=== PATIENT | male | born 1945 | race Caucasian/White ===

== ENCOUNTER 2016-08-05 09:25 | Inpatient (IN) | payer BC, MEDICARE ==
[~2016-08-05] VITALS: Ht 180.3 cm; Wt 112.3 kg
--- NOTE | ~2016-08-05 | WND ---
ADMIT: 08/05/2016 RM/LOC: 425 [facility] MR#: [id number] [address] [address] LISANDRO SMITH [address] [place] [address] Wound Care Clinic SEX: M AGE: 71 : 1945 DATE OF VISIT: 08/08/2016 TIME OF VISIT: 30 minutes. REASON FOR VISIT: Weeping left lower extremity. HISTORY OF PRESENT ILLNESS: Lisandro was admitted to the hospital on August 05, 2016, for an acute on chronic obstructive pulmonary disease exacerbation with influenza A. He also was noted at that time to have weeping of bilateral lower extremities. His states that he has a long history of this and at home she is able to kind of control using it Naveen wraps. On August 05, 2016, I applied bilateral Unna boots. He reported that he has along well with the Unna boots. He states today that he is feeling better, and he is getting ready to go home. He has just had a shower, and his Unna boots have been removed. OBJECTIVE: GENERAL: Assessment reveals an alert and oriented 71-year-old male, in no acute distress. EXTREMITIES: Assessment of bilateral lower extremities shows 2+ pitting edema. He has hemosiderin staining to the anterior surfaces of bilateral lower extremities. The stasis dermatitis has resolved with the use of the [place]. He has 1+ dorsalis pedis pulse bilaterally. Circumferential measurements of the right lower extremity are 26 cm at the foot, 29 at the ankle, and 43 at the calf. In his left lower extremity, circumferential measurements are 26 cm at the foot, 29 cm at the ankle, and 37 cm at the calf. ASSESSMENT: History of venous insufficiency with venous insufficiency ulcers. PLAN: Due to the swelling that is still there, I am going to rewrap him in Unna boots bilaterally. Starting at the proximal base of bilateral toes to the popliteal fossa, I used the Unna Boot Primer and Coban. The patient tolerated the procedure well. He is going to follow up with us in Outpatient [facility] Clinic on August 15, 2016. I would like to thank Dr. Gray for allowing me to participate in his care. Trudy Gregg APRN/ sara JOB #: [id number] CC: Aditya Gray MD, Attending Physician Aditya Gray MD, Family Physician
--- NOTE | ~2016-08-05 | WND ---
ADMIT: 08/05/2016 RM/LOC: 425 [facility] MR#: [id number] [address] [address] CHAIM SMITH [address] [place] [address] Wound Care Clinic SEX: M AGE: 71 : 1945 DATE OF VISIT: 08/05/2016 TIME OF VISIT: 15 minutes. REASON FOR VISIT: Weeping left lower extremity. HISTORY OF PRESENT ILLNESS: Chaim was seen in Short-Stay Surgery where he was receiving IV antibiotics for a possible community-acquired pneumonia. Wound Care was consulted regarding weeping of bilateral lower extremities. His reports that he has long standing history of this. She states that he gets admitted to the hospital for diuresis and he is good for about a week or so and then he starts to have the weeping lower extremities again. PAST MEDICAL HISTORY: He was hospitalized twice in 2011 for bilateral knee replacements. Hospitalized in 2009 for congestive heart failure. Hospitalized in 2002 for myocardial infarction, ventricular tachycardia with arrest. Chronic medical conditions include chronic atrial fibrillation, chronic obstructive pulmonary disease, systolic congestive heart failure although the last ejection fraction on echocardiogram was 50%, hyperlipidemia, essential hypertension, impaired fasting glucose, osteoarthritis, chronic lower extremity edema, chronic obstructive sleep apnea, pulmonary hypertension, rheumatoid arthritis, bilateral varicose vein history. PAST SURGICAL HISTORY: Include LAD stent, pacemaker ICD placement, cardiac catheterizations, colonoscopy, tonsillectomy, bilateral knee replacements. FAMILY HISTORY: Positive for diabetes, osteoarthritis, myocardial infarction, and asthma in various first-degree relative. SOCIAL HISTORY: He is and resides with his at home. He is a former smoker. He uses alcohol occasionally. ALLERGIES: Lipitor causes muscle aches. CURRENT MEDICATIONS: Unavailable at time of dictation. However, I do have a list of medications from September of 2015 from old chart review that shows: 1. Aldactone. 2. Aspirin. 3. Coumadin. 4. Crestor. 5. Vitamin C. 6. Multivitamin. 7. Fish oil. 8. Glucosamine. 9. Lasix. 10.Lisinopril. 11.Methotrexate. 12.Niaspan. 13.Azulfidine. ADMIT: 08/05/2016 RM/LOC: 425 [facility] MR#: [id number] [address] [address] CHAIM SMITH [address] [place] [address] Wound Care Clinic SEX: M AGE: 71 : 1945 14.Symbicort. 15.Toprol. 16.Relafen. 17.Oxygen 2 L continuous. REVIEW OF SYSTEMS: He does report having fever and chills over the past couple of days. He is increasingly short of breath. He does have a dry cough. He denies any nausea, vomiting, or abdominal pain. PHYSICAL EXAMINATION: Reveals an alert and oriented 71-year-old male, in no acute distress. He is examined in Short-Stay Surgery sitting in the recliner with his feet elevated. Assessment of his bilateral lower extremities shows hemosiderin staining with stasis dermatitis to bilateral lower extremities. He has 1+ dorsalis pedis pulses bilaterally. He has 3+ pitting edema on the right and 2+ pitting edema on the left. Circumferential measurements of the right lower extremity are 27 cm at the foot, 29 cm at the calf, 42 cm at the ankle. On the left, he has 27 cm at the foot, 28 cm at the ankle, and 37 cm at the calf. No open weeping areas are noted. ASSESSMENT: History of venous insufficiency with venous insufficiency ulcers. PLAN: Due to the large amount of edema and the previous history of weeping bilateral lower extremities, we are going to apply Unna boots to bilateral lower extremities. We used a Coban primer and started from the proximal base of the toes and wrapped in a spiral fashion to popliteal fossa bilaterally. Then, using Coban, we wrapped from the proximal base of the toes to the popliteal fossa in a spiral fashion. The patient tolerated the procedure well. We did write an order when he went to the hospital that we will change these on Mondays and . The patient was amenable to plan of care. I would like to thank Dr. Gray for allowing us to participate in his care. Trudy Gregg APRN/ sara JOB #: [id number] CC: Aditya Gray, Attending Physician Aditya Gray, Family Physician
[~2016-08-05 09:25] MED LIST: ALDACTONE DPS25 MG PO; AMBIEN DPS5 MG PO; ASA CHILDREN'S81 MG PO; AZULFIDINE DPS500 MG PO; COUMADIN5 MG PO; COUMADIN7.5 MG PO; CRESTOR40 MG PO; DEBROX OTIC15 ML AU; DUONEB DPS3 ML IH; LASIX DPS80 MG PO; MAALOX DPS30 ML PO; METHOTREXATE2.5 MG PO; MYCOSTATIN PWD15 GM TP; NITROSTAT0.4 MG SL; PLAQUENIL DPS200 MG PO; RELAFEN DPS750 MG PO; SLO NIACIN DPS500 MG PO; SPIRIVA18 MCG IH; SURFAK DPS240 MG PO; SYMBICORT80 MCG/6.9 IH; THERAPEUTIC MUL1 TAB PO; TOPROL XL100 MG PO; TYLENOL DPS325 MG PO; VITAMIN C1000 MG PO; ZESTRIL DPS2.5 MG PO; [UNRECOGNIZED DRUG - OTHER] PO
--- NOTE | 2016-08-08 13:33 | HP ---
ADMIT: 08/05/2016 RM/LOC: 425 [facility] MR#: [id number] [address] [address] CHAIM SMITH [address] [place] [address] History and Physical SEX: M AGE: 71 : 1945 DATE OF SERVICE: CHIEF COMPLAINT: Two-day history of increasing congestion and cough and weakness with fever. HISTORY OF PRESENT ILLNESS: Chaim is a very nice 71-year-old with multiple medical issues as outlined below. He states that 2 days ago (Friday), he began to have some increasing cough and congestion and then yesterday, became increasingly weak, had worse cough and developed low-grade fever. His brought him into the office this morning with these complaints and because of this issue and his physical status outlined below, he is admitted for further evaluation and treatment. PAST MEDICAL HISTORY: His problem list includes known atrial fibrillation/PAF and he is status post cardiac defibrillator for ischemic cardiomyopathy (October 2009, AICD placement), he has known chronic obstructive pulmonary disease, chronic both systolic and diastolic congestive heart failure, [place] Heart Association class 3-4, hyperlipidemia, systemic hypertension, impaired fasting glucose, obstructive sleep apnea, diffuse osteoarthritis, rheumatoid arthritis (seropositive-sees Dr. Delarosa), pulmonary hypertension, status post acute myocardial infarction/STEMI on 06/10/2002 with stenting, iron-deficiency anemia, and lower extremity chronic venous stasis with varicose veins and ulceration. CURRENT MEDICATIONS: Include: 1. Aldactone 25 mg at bedtime. 2. Aspirin 81 mg daily. 3. Coumadin 5 mg daily. 4. Crestor 40 mg at bedtime. 5. Glucosamine/chondroitin one daily. 6. Multivitamin 1 daily. 7. Dulera 100/5, 2 inhalations b.i.d. 8. Folic acid 1 mg b.i.d. 9. Vitamin C 500 mg 2 daily. 10.DuoNeb q.i.d. p.r.n. 11.Lisinopril 2.5 mg at bedtime. 12.Methotrexate 2.5 mg 6 tabs on Friday. 13.Metoprolol ER 25 mg daily. 14.Nabumetone 750 mg b.i.d. 15.Nitrostat 0.4 mg sublingual p.r.n. 16.Plaquenil 200 mg b.i.d. 17.Sotalol 160 mg b.i.d. 18.Spiriva hand inhaler 18 mcg daily. 19.Sulfasalazine 500 mg b.i.d. 20.Torsemide 10 mg daily. 21.Vitamin D 1000 International Units daily. 22.Zolpidem 5 mg at bedtime. ALLERGIES: THERE ARE NO ALLERGIES REPORTED TO LATEX AND ATORVASTATIN (MUSCLE ADMIT: 08/05/2016 RM/LOC: 425 [facility] MR#: [id number] [address] [address] CHAIM SMITH [address] [place] [address] History and Physical SEX: M AGE: 71 : 1945 ACHES). SOCIAL HISTORY: Reveals that he quit smoking a number of years ago, former [id number]-jyw-approximate [id number] history. He drinks alcohol rarely. Because of his multiple medical issues, he cannot exercise as well. He lives at home with his and is on O2 at bedtime routinely. 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 REVIEW OF SYSTEMS: Otherwise, negative x10 points except as noted above. PHYSICAL EXAMINATION: GENERAL: This morning, he was alert but looks in moderate distress. He is pale. VITAL SIGNS: He has a temp of 101.4 here in the office, blood pressure 112/62, pulse of 115 and irregular, O2 saturation of 93% on 3 L. HEENT: Essentially negative. NECK: Reasonably supple. I detect no bruits. LUNGS: Sounds are distant and reduced but essentially his lungs sound clear. CARDIAC: Shows very distant heart sounds and irregularly irregular cardiac rhythm around 110-115. ABDOMEN: Relatively soft without masses, tenderness, or organomegaly. GENITAL/RECTAL: Not done. Lower extremities show 1-2+ pitting edema to his knees with "weeping" edema of the left lower extremity. NEUROLOGIC: Essentially normal with his inability to test. IMPRESSION: 1. Exacerbation of chronic obstructive pulmonary disease-suspect underlying pneumonia. 2. Atrial fibrillation with rapid ventricular response. 3. Chronic congestive heart failure-apparently both systolic and diastolic. 4. Systemic hypertension. 5. Impaired fasting glucose. 6. Hyperlipidemia. 7. Chronic Coumadin anticoagulation. 8. Obstructive sleep apnea. 9. Diffuse osteoarthritis. 10.Seropositive rheumatoid arthritis. 11.History of iron deficiency anemia. ADMIT: 08/05/2016 RM/LOC: 425 [facility] MR#: [id number] [address] [place] [id number] CHAIM SMITH [address] [place] [address] History and Physical SEX: M AGE: 71 : 1945 12.Known coronary artery disease, status post ST-segment elevation myocardial infarction in 2002 with stenting. 13.Status post AICD/pacemaker placement in October 2009. 14.Pulmonary hypertension. 15.Chronic venous stasis of lower extremities with history of ulcerations. PLAN: He has been admitted. We will seek Pulmonary consult. We will place him on a community-acquired pneumonia pathway and use Zosyn/Levaquin/Solu- Medrol. We will increase his bronchopulmonary toilet. We will get a wound nurse consult about his left lower extremity. We will do the basic laboratory studies. Further treatment will depend on his response to our initial therapies. Aditya Gray MD/ sara JOB #: [id number] CC: Aditya Gray, Attending Physician Aditya Gray, Family Physician
--- NOTE | 2016-08-09 17:30 | CCR ---
ADMIT: 08/05/2016 RM/LOC: 425 [facility] MR#: [id number] [address] [address] CHAIM SMITH [address] [place] [address] CCR/CVR/GILMAR SEX: M AGE: 71 : 1945 PROCEDURE DATE: 08/09/2016 PROCEDURE: Elective cardioversion for atrial fibrillation. ANESTHESIA: IV propofol was administered and monitored by the Anesthesia Department. INDICATION: Chaim is a 71-year-old, who was admitted with respiratory decline and shortness of breath. Eventually, he was found to have influenza with underlying COPD. He has chronic heart failure and a history of paroxysmal atrial fibrillation and has had a previous dual-chamber ICD implanted. He was in atrial fibrillation when he was hospitalized. It has been tachycardic and difficult to get rate control. He has been on chronic anticoagulation and antiarrhythmic therapy for some time. He was referred for cardioversion. DESCRIPTION: Utilizing his internal defibrillator, we proceeded with cardioversion. After achieving adequate anesthesia, and I discussed the risks and benefits with him, we delivered 31 joule defibrillation, which promptly restored sinus rhythm. We left his device in the DDI mode at a rate of 70. RECOMMENDATIONS: Continue his sotalol and anticoagulation. Tyrell Gray MD/ sara JOB #: [id number] CC: Aditya Gray, Attending Physician Aditya Gray, Family Physician
--- NOTE | 2016-08-12 10:29 | CO ---
ADMIT: 08/05/2016 RM/LOC: 425 [facility] MR#: [id number] 2620 [facility] [address] [place] [id number] CHAIM SMITH [address] [place] [address] Consultation SEX: M AGE: 71 : 1945 DATE OF CONSULTATION: 08/05/2016 ATTENDING PHYSICIAN: Aditya Gray CONSULTING PHYSICIAN: Alan Forman MD Mr. Smith is 71. He was accompanied here by his . He is 71. He has a diagnosis of COPD, coronary artery disease with cardiomyopathy, congestive heart failure, obstructive sleep apnea and a diagnosis of WPW. He does have defibrillator. He has given up smoking in 2002 when he had 3 heart stents. He follows with the [facility]. He presented to the ER with low-grade fever and hypotension and tachycardia. Temperature was 101.4, blood pressure was 112/62, he told me it was 90s when he came in and his heart rate was 123. Oxygen saturation is 93%. He is on oxygen at home 09/12. He has been coughing and he was also having some whitish sputum production, no blood. Lot of chest pain in the mid chest with cough. He did eat alright on Friday and also had eaten good breakfast on Friday morning, but not since. From the ER, he has been started on Zosyn, levofloxacin and Solu-Medrol. DuoNeb treatment has been given. He is on oxygen. IV fluids started. He had blood cultures taken. His laboratory investigation shows a pH of 7.45, PCO2 of 36, PO2 of 116.1, with bicarbonate 24.5 on 3 L. His creatinine is 2.0. Potassium 4.3, glucose 232. Liver functions elevated, alkaline phosphatase 158. AST 55, LDH 258, INR 1.9. His white count was 5.6, hemoglobin 13.5, platelets low at 78. Denies any chest pain except for when he tries to take cough hard. He has edema in the lower extremities. He has short, thick neck. He has been using nebulized treatment at home. Diminished breath sounds on both sides, minimal rhonchi and no distinct heart murmur. Abdomen, protuberant without organomegaly. Chest x-ray seen and compared with 10/08/2015 and 10/06/2015. Increased marking pacer, no distinct pneumonia identified. I am going to check the procalcitonin, proBNP, lactic acid, and levofloxacin should be at 750 q.48 hours. Zosyn in the same dose, Solu-Medrol 80 mg every 8 hours. I am going to give him 1 L of fluid bolus now and then IV fluids at 125 another liter and see how he does. He looks alert and appropriate. Does not appear to be in any distress, overall prognosis should be guarded. Discussed with his and nurse. Alan Forman MD/ sara JOB #: [id number] CC: Aditya Gray, Attending Physician Aditya Gray, Family Physician
[2016-08-13] MEDS ORDERED: GLUCAGON HCL1 MG IM (06:47)
[2016-08-13] MEDS ORDERED: DULERA 100/58.8 GM IH (06:51)
[2016-08-13] MEDS ORDERED: FOLIC ACID1 MG PO (06:52)
[2016-08-13] MEDS ORDERED: CARDIZEM60 MG PO (06:53)
[2016-08-13] MEDS ORDERED: KLOR-CON M2020 ME1 PO (06:53)
[2016-08-13] MEDS ORDERED: GLUCOSAMINE &1 EAC1 PO (06:53)
[2016-08-13] MEDS ORDERED: PEPCID DPS20 MG PO (06:54)
[2016-08-13] MEDS ORDERED: TAMIFLU30 MG PO (06:54)
[2016-08-13] MEDS ORDERED: LEVAQUIN DPS250 MG PO (06:54)
[2016-08-13] MEDS ORDERED: GLUTOSE 1537.5 GM PO (06:55)
--- NOTE | 2016-08-16 15:09 | CO ---
ADMIT: 08/05/2016 RM/LOC: 425 [facility] MR#: [id number] [address] CHAIM SMITH [address] [place] [address] Consultation SEX: M AGE: 71 : 1945 DATE OF CONSULTATION: 08/06/2016 ATTENDING PHYSICIAN: Aditya Gray CONSULTING PHYSICIAN: Mike Mike MD REASON FOR CONSULTATION: Paroxysmal atrial fibrillation with CHF and hypotension. Violeta Lino RN, scribing for Dr. Mike Mike. HISTORY OF PRESENT ILLNESS: Chaim is a pleasant 71-year-old gentleman I have been asked to see in Cardiology consultation by Dr. Francisco for hypotension recently with CHF and paroxysmal atrial fibrillation history. Chaim follows regularly at [facility] with Dr. Tobi Lorenzo. He has seen him on 05/29/2016 at last office visit. He has history of Fakdg-Njjnbpzrs-Cnpnj along with history of VT arrest in 2002 during an VT resulting in stent to his LAD and has a dual-chamber ICD placement currently. Last echocardiogram showed ejection fraction of 55% in little less than a year ago with a stress test around that time showing fixed defect. He has history of obstructive sleep apnea and is on CPAP at night. He also has history of paroxysmal atrial fibrillation, hypertension, and hyperlipidemia. He has former tobacco use, quitting in 2002. Chaim also has history of COPD and chronic kidney disease with baseline creatinine anywhere from 1.7 to 2. Chaim presented to [facility], direct admit from primary care yesterday, for complaints of increased shortness of breath for about 2 days along with fever and cough. He stated this progressively had gotten worse, he went and saw Dr. Aditya Gray, who is his primary care physician and was found to be in atrial fibrillation at that time along with suspected pneumonia and so, he was admitted. He is being followed by Pulmonology for pneumonia and possible sepsis at this time. His heart rate has been elevated in the 120s. He denies any palpitations but does state that since admission, he feels much better as far as his shortness of breath and weakness are concerned. He did have some hypotension yesterday with blood pressures in the 80s and so, some of his blood pressure medications were held. He continues to have heart rates around 120. He is on Coumadin for anticoagulation. Chaim denies any chest pain, pressure, or tightness. He does have some significant peripheral edema and Wound Care is evaluating him and has placed Unna boots on his legs. Chest x- ray has demonstrated increased pneumonia. PAST MEDICAL HISTORY: 1. Paroxysmal atrial fibrillation. 2. Coronary artery disease, status post myocardial infarction in 2002 with a VT arrest, status post ICD dual-chamber placement. 3. Hypertension. 4. Hyperlipidemia. 5. Former tobacco use. 6. Acogz-Btdepxeiz-Mglcz syndrome. ADMIT: 08/05/2016 RM/LOC: 425 [facility] MR#: [id number] [id number] [address] CHAIM SMITH [address] [place] [address] Consultation SEX: M AGE: 71 : 1945 7. History of respiratory failure. 8. History of COPD. 9. Osteoarthritis. 10.Chronic venous stasis. 11.Emphysema. 12.Obesity. 13.Osteoarthritis. 14.Pulmonary hypertension. 15.Rheumatoid arthritis. 16.Obstructive sleep apnea, on CPAP. 17.Ulcerative colitis. 18.Varicose veins. PAST SURGICAL HISTORY: 1. Right total knee replacement. 2. Left total knee replacement. 3. Tonsillectomy. 4. Colonoscopy. 5. Cardiac procedures outlined above. ALLERGIES: LIPITOR CAUSED MUSCULOSKELETAL PAIN, AND HE HAS A LATEX ALLERGY WITH RASH. MEDICATIONS: Current medications include: 1. Aldactone 25 p.o. at bedtime, which was held last night. 2. Aspirin 81 daily. 3. Azulfidine 1000 mg p.o. b.i.d. 4. Betapace 160 b.i.d. 5. Coumadin 5 daily. 6. Crestor 40 daily. 7. Demadex 10 p.o. b.i.d. 8. Folvite 2 mg p.o. daily. 9. Glucosamine p.o. t.i.d. 10.Methotrexate 15 p.o. at bedtime. 11.Plaquenil 200 b.i.d. 12.Protonix 40 daily. 13.Relafen 750 p.o. b.i.d. 14.Multivitamin daily. 15.Toprol-XL 75 p.o. daily. 16.Vitamin C 1000 daily. 17.Zestril 2.5 daily. 18.DuoNeb inhalation q.4 hours. 19.Spiriva 18 mcg inhalation daily. 20.NovoLog sliding scale before meals and at bedtime. 21.Levaquin 750 mg IV q.48 hours. 22.Solu-Medrol 40 mg IV q.8 hours. 23.Zosyn 3.375 g IV q.8 hours. ADMIT: 08/05/2016 RM/LOC: 425 [facility] MR#: [id number] [address] [address] CHAIM SMITH [address] [place] [address] Consultation SEX: M AGE: 71 : 1945 FAMILY HISTORY: Positive family history of coronary disease in father. Positive family history of cancer in grandmother. Positive family history of diabetes in brother. SOCIAL HISTORY: Chaim is . He lives at home with his , Stephany. He is retired. He has history of alcohol use one drink a week and drinks coffee on a daily basis. Low-fat, low-cholesterol, low-salt diet. He quit smoking in 2002 after a 40 pack-year history. REVIEW OF SYSTEMS: GENERAL: Denies chills, sweats, or rash. Reports increased fatigue over the last 2-3 days and a history of fever over the last 2-3 days. He is unsure about weight gain. EYES: Denies double vision, blurred vision, cataracts, glaucoma, or vision changes. ENT: Denies problems with nose, mouth or throat. Denies any sinus congestion, sore throat, or hearing loss. PULMONARY: Denies snoring loudly, wakefulness at night, or fatigue upon awakening. History of COPD with emphysema. History of obstructive sleep apnea, on CPAP. He was admitted with increased shortness of breath, which is improving. He is currently being treated for pneumonia. GASTROINTESTINAL: History of gastroesophageal reflux disease. Denies any current issues with swallowing or hiatal hernia. Denies any blood in stools, black or tarry stools, or gallbladder issues. GENITOURINARY: Denies dysuria, hematuria, nocturia, urinary tract infection, BPH, or kidney stones. He does have chronic kidney disease with a creatinine around 1.9 to 2. MUSCULOSKELETAL: History of osteoarthritis and gout. Currently, he is denying any discomfort in his extremities. ENDOCRINE: History of diabetes. Denies thyroid issues. HEMATOLOGIC: Denies history of anemia, easy bruising, or cancer. NEUROLOGIC: Denies chronic headaches, dizziness, syncope, stroke, seizures or numbness or tingling. PSYCHIATRIC: Denies history of mental illness or feelings of depression. PHYSICAL EXAMINATION: VITAL SIGNS: Blood pressure 122/55, heart rate 126, respirations 20, temperature 96.9, oxygenation 98% on O2. SKIN: [place], warm and dry. EYES: Sclerae clear. No xanthelasmas. ENT: Nasal cannula O2. JVP difficult to visualize. Oral mucosa is pink and moist. No lymphadenopathy or bruits. CHEST: Respirations are even and unlabored. Lungs, coarse breath sounds with expiratory wheezes throughout. HEART: Tachycardic. Irregularly irregular. ABDOMEN: Obese, nontender, nondistended. MUSCULOSKELETAL: Gait is normal. EXTREMITIES: Peripheral pulses palpable. No clubbing or cyanosis. With 2 to 3+ pitting edema. Unna boots in place. PSYCHIATRIC: Alert and oriented. Mood and affect are appropriate. ADMIT: 08/05/2016 RM/LOC: 425 [facility] MR#: [id number] [facility] [address] [place] [id number] CHAIM SMITH [address] [place] [address] Consultation SEX: M AGE: 71 : 1945 DIAGNOSTIC DATA: Chest x-ray on 08/06 shows bilateral interstitial opacities which have increased since last x-ray 24 hours ago. Sodium 137, potassium 4.1, BUN 37, creatinine 1.9, glucose 290. ProBNP 2310. AST 98, ALT 95. CRP 3.02. INR 1.92. White blood cell count 7.6, hemoglobin 10.9, hematocrit 34.0, platelets 132. Lactic acid 1.6. ASSESSMENT AND PLAN: 1. Acute chronic obstructive pulmonary disease exacerbation. 2. Atrial fibrillation with rapid ventricular response. 3. Acute on chronic systolic and diastolic heart failure. 4. Hypotension. 5. Coronary disease, status post myocardial infarction remotely. 6. Status post implantable cardioverter defibrillator. I suspect his hypotension and atrial fibrillation was exacerbated by infection and respiratory failure. I will give a dose of digoxin for atrial fibrillation rate control and he is already on sotalol for rhythm control. He has significant edema and so, I will also give him a dose of IV Lasix 80 mg x1 now and hold his Demadex at this time. He will have strict I's and O's and daily weights, and I will recheck EKG in a.m. along with I's and O's and rhythm on telemetry. Thank you for the consultation. "I have read and agree with the documentation that has been completed regarding this visit. By signing this record, I attest that the documentation was completed in my physical presence and is an accurate record of the encounter." Violeta Lino RN / Mike Mike MD / sara JOB #: [id number] CC: Aditya Gray, Attending Physician Aditya Gray, Family Physician
--- NOTE | 2016-08-20 08:16 | DS ---
ADMIT: 08/05/2016 RM/LOC: 425 [facility] MR#: [id number] [id number] [address] CHAIM SMITH [address] [place] [address] General Discharge Summary SEX: M AGE: 71 : 1945 ADMISSION DATE: 08/05/2016 DISCHARGE DATE: 08/12/2016 FINAL DIAGNOSES: 1. Xllqf-ce-vfedgtm obstructive pulmonary disease exacerbation with influenza A. 2. Atrial fibrillation with rapid ventricular response. 3. Leyzr-tr-ihyhnms systolic and diastolic heart failure. 4. Systemic hypotension with #1. 5. Coronary artery disease, status post myocardial infarction years ago. 6. Status post implantable cardioverter-defibrillator. 7. Hyperlipidemia. 8. Impaired fasting glucose. 9. Obstructive sleep apnea. 10.Diffuse osteoarthritis. 11.Seropositive rheumatoid arthritis. 12.Pulmonary hypertension. 13.Status post acute myocardial infarction/ST-segment elevation myocardial infarction in 2002 with stenting. 14.Iron-deficiency anemia. 15.Chronic lower extremity venous stasis with varicose veins and history of ulceration-none current. 16.Chronic renal insufficiency (GFR 35-40). BRIEF HISTORY: This very nice 71-year-old gentleman reported that 2 days prior to this admission, he began having increasing cough and congestion and then yesterday, the day prior to admission, became increasingly weak, had worse cough and developed low-grade fever. He was brought by his to the office the morning of admission, where he was found to be in moderate distress, was pale, had a temp of 101.4 in the office blood pressure 112/62 and irregular pulse of 115, O2 sats at 93% on 3 L. His heart sounds were distant but irregularly irregular around 110-115. Lungs sounds are also distant but he had no obvious rhonchi, rales, or wheezes. He had his 1-2+ pitting edema with "weeping edema" of his left lower extremity. SIGNIFICANT LAB AND X-RAY: On admission, CBC showed hemoglobin of 13.5 with macrocytic indices, platelets of 78,000, white count of 5600. Serial CBCs were followed and his hemoglobin reached its toya on 08/12/2016 at 9.9 g/dL. His white count reached its peak on 08/09/2016 at 14.7. By 08/12/2016, CBC showed hemoglobin of 9.9 with still macrocytic indices, platelets of 96,000, white count of 8000. Serial INRs were followed. On 08/05/2016, CMP showed a creatinine of 2.0 mg/dL, glucose of 232 mg/dL, calcium of 8.1 mg/dL, albumin of 2.9 g/dL, alkaline phosphatase of 158 U/L (normal 33-138). AST of 55 U/L (10-40) and the CMP was otherwise normal. On admission, his lactic acid was 1.3 mmol/L. ADMIT: 08/05/2016 RM/LOC: 425 [facility] MR#: [id number] [id number] [place] [id number] CHAIM SMITH [address] [place] [address] General Discharge Summary SEX: M AGE: 71 : 1945 On admission, his procalcitonin was 0.06 ng/mL. On admission, his proBNP was 2562 pg/mL. Serial chemistries were followed. By 08/06/2016, his proBNP was 2310 pg/mL. His lactic acid and procalcitonin continued within normal range. By 08/09/2016, his BMP was normal but for a creatinine of 1.7 mg/dL, and magnesium of 2.5 mg/per dL (normal 1.8-2.4). Serial bedside blood sugars were followed. Serial arterial blood gases were followed. On 08/05/2016, C-reactive protein was 3.02 mg/per dL (normal less than 0.30). Blood cultures obtained x2 on admission had no growth after 5 days incubation. Respiratory viral panel done on 08/05/2016 was positive for influenza A (subtype H3). On admission chest x-ray was read as "impression: 1. Left-sided pacemaker. 2. Hyperinflation with peribronchial cuffing centrally. Findings are more prominent on the left. Left inflammatory changes cannot be excluded." Serial chest x-rays were followed and by 08/09/2016, it was read as "modest increase in bilateral vascular congestion." Final chest x-ray of 08/12/2016 was read as "impression: Left basilar consolidation, mildly improved.". 3. On 08/09/2016, he underwent elective cardioversion with Dr. Tyrell Gray for his atrial fibrillation and he has normal sinus rhythm was promptly restored. 4. On 08/05/2016, EKG was read as "sinus tachycardia, prolonged QT interval, compared to 10/07/2015 increased rate." Serial EKGs were followed which remained essentially stable until 08/07/2016 and it was read as an irregular supraventricular tachycardia with inferior ST-T abnormalities, suggesting myocardial injury or ischemia." On 08/09/2016, his EKG was read as "sinus rhythm, demand atrial pacing, inferior lateral ST-T abnormalities nonspecific " and on 08/10/2016, his EKG was stable. HOSPITAL COURSE: The patient was admitted from the office and the imaging and laboratory studies outlined above were begun. He was placed on Zosyn 3.75 mg IV q.8 hours, Levaquin 500 mg IV daily and Solu-Medrol 80 mg IV on admission DuoNeb started q.i.d. and q.1 to 2 hours p.r.n. He was given oxygen to maintain saturations greater than 90%. The blood cultures were obtained. IV of normal saline was run at 75 mL/hour. He was allowed normal saline. He was allowed diet as tolerated. He was continued on his usual home CPAP. He was admitted to inpatient on telemetry. He was seen by Pulmonology and his Levaquin was changed to 750 mg IV q. 48 hours. Solu-Medrol was increased to 80 mg IV q.8 hours. He was given normal saline bolus and his Aldactone was ADMIT: 08/05/2016 RM/LOC: 425 [facility] MR#: [id number] [id number] [facility] [address] [place], [place] [address] CHAIM SMITH [address] [place] [address] General Discharge Summary SEX: M AGE: 71 : 1945 held. His blood pressures were somewhat low so subsequently his Aldactone, metoprolol, and Betapace were held for systolic blood pressure of less than 110. At the morning of 08/06/2016, he was feeling better, then he was admitted. He still had chest pain with his cough. He continued in a tachycardia. Cardiology consult was requested. He was started on Accu-Cheks q.i.d. with sliding scale and very low-dose Humalog. Solu-Medrol was decreased to 40 mg IV q. 8 hours. Following Cardiology evaluation, he was given digoxin 0.5 mg IV x1. Demadex was discontinued. He was given Lasix 80 mg IV x1. It was felt that his hypotension was probably secondary to atrial fibrillation exacerbation. By 08/07/2016, he had been afebrile for 24 hours. He was "feeling better" and his chest was actually clear. His tachycardia persisted. His INRs were followed. His Aldactone and Zestril were discontinued. He was placed on a fluid restriction 800 mL per day. His Toprol-XL was changed to 100 mg daily and diltiazem 30 mg p.o. q.6 hours was initiated. He was given Lasix 80 mg IV x1 that day. His Solu-Medrol was decreased to 20 mg daily. His Zosyn was discontinued. His Levaquin was decreased to 750 mg q. 48 hours. By 08/08/2016, he had his positive respiratory viral panel back. He was placed on Tamiflu 75 mg b.i.d. He was increased to low-dose NovoLog if his Accu-Cheks are running 280-360. His INR was up to four so his Coumadin was held. Subsequently with his renal functions Tamiflu was changed to 30 mg p.o. b.i.d. Adjustments were made in his diltiazem doses and his fluid restriction was liberalized to 2000 mL per 24 hours. On 08/08, his IV Solu-Medrol Was discontinued. Adjustments were made in his insulin dose. his Coumadin was continued to be held overall he was slowly improving and feeling better. On 08/09, the transesophageal echo orders were followed and he was scheduled for his direct cardioversion that afternoon which was done which he tolerated well with good success back to sinus rhythm. Over the next couple of days, we just adjusted his potassium doses and by 08/12 (hospital day #7 and day #2ardioversion), he remained afebrile. Vital signs were stable. Pulse was 70 and paced. His Accu-Cheks were down in to the 170-225 range. He felt "ready to go home." At that point, it was felt safe to dismiss him to home. To continue on his ADA diet, allowed activity as tolerated, he was given continuous O2 with CPAP at bedtime. Arrangements were made for an office visit with me in 7 to 10 days at which point, CBC, CMP, INR, chest x-ray, proBNP will be obtained. Arrangements were made for followup with Pulmonary and [facility]. Failed to mention above that he had been seen by Wound Care and on 08/12, he ADMIT: 08/05/2016 RM/LOC: 425 [facility] MR#: [id number] [address] [address] CHAIM SMITH [address] [place] [address] General Discharge Summary SEX: M AGE: 71 : 1945 was placed in the unna boots. They will follow him up on 08/15/2016. MEDICATIONS: On dismissal, his medications included: 1. Aspirin 81 mg daily. 2. Sulfasalazine 1000 mg b.i.d. 3. Betapace 160 mg b.i.d. 4. Cardizem 60 mg q.6 hours. 5. Coumadin 5 mg daily. 6. Crestor 40 mg daily. 7. Folvite 2 mg daily. 8. Glucosamine chondroitin t.i.d. 9. Klor-Con 20 mEq daily. 10.Levaquin 750 mg q. 48 hours x3 more doses. 11.Methotrexate 15 mg on Mondays. 12.Pepcid 20 mg b.i.d. 13.Plaquenil 200 mg b.i.d. 14.Relafen 750 mg b.i.d. 15.Tamiflu 30 mg b.i.d. x2 more days. 16.Multivitamin 1 daily. 17.Toprol-XL 100 mg daily. 18.Vitamin C 1000 mg daily. 19.Dulera 100/5.8 one inhalation b.i.d. 20.DuoNeb q.4 hours while awake. 21.Spiriva 18 mcg daily. 22.Lasix 80 mg p.o. b.i.d. He will have p.r.n. orders for: 1. Ambien 5 mg. 2. Glutose. 3. Maalox. 4. Surfak. 5. Tylenol. 6. DuoNeb. 7. Glucagon. ADMIT: 08/05/2016 RM/LOC: 425 [facility] MR#: [id number] [id number] [facility] [address] [place] [id number] CHAIM SMITH [address] [place] [address] General Discharge Summary SEX: M AGE: 71 : 1945 8. Nitrostat. 9. He will also be placed back on his spironolactone 25 mg at bedtime. CONDITION ON DISCHARGE: Stable on the above treatment. FINAL DISPOSITION: As noted. PROGNOSIS: Guarded. Aditya Gray MD/ sara JOB #: [id number] CC: Aditya Gray MD, Attending Physician Aditya Gray MD, Family Physician MD Alan Pan MD
[2016-11-26] MEDS ORDERED: VITAMIN D35000 UNI1 PO (11:47)
[2016-11-26] MEDS ORDERED: ZAROXOLYN5 MG PO (11:52)
[2016-11-26] MEDS ORDERED: COLACE-DPS100 MG PO (11:53)
[2016-11-26] MEDS ORDERED: AUGMENTIN 250250 MG PO (11:53)
== END 2016-08-12 12:49 | disposition home or self-care (01) | DRG 871 ==
LOC: WOR 09:25 → 4PCU 09:25
PROVIDERS: ADMIT Family Medicine
PROC: 5A2204Z Restoration of Cardiac Rhythm, Single (ICD-10-PCS; principal; 2016-08-09)
DX: A41.89 Other specified sepsis (principal); J10.00 Influenza due to other identified influenza virus with unspecified type of pneumonia; J96.90 Respiratory failure, unspecified, unspecified whether with hypoxia or hypercapnia; R65.21 Severe sepsis with septic shock; I50.43 Acute on chronic combined systolic (congestive) and diastolic (congestive) heart failure; N17.9 Acute kidney failure, unspecified; I42.9 Cardiomyopathy, unspecified; I95.9 Hypotension, unspecified; I11.0 Hypertensive heart disease with heart failure; J44.1 Chronic obstructive pulmonary disease with (acute) exacerbation; I27.2 Other secondary pulmonary hypertension; I25.10 Atherosclerotic heart disease of native coronary artery without angina pectoris; E11.9 Type 2 diabetes mellitus without complications; Z99.81 Dependence on supplemental oxygen; I48.0 Paroxysmal atrial fibrillation; R00.0 Tachycardia, unspecified; I25.5 Ischemic cardiomyopathy; E78.5 Hyperlipidemia, unspecified; R73.01 Impaired fasting glucose; G47.33 Obstructive sleep apnea (adult) (pediatric); M19.90 Unspecified osteoarthritis, unspecified site; M06.9 Rheumatoid arthritis, unspecified; I87.8 Other specified disorders of veins; I83.90 Asymptomatic varicose veins of unspecified lower extremity; I25.2 Old myocardial infarction; Z95.810 Presence of automatic (implantable) cardiac defibrillator; Z79.01 Long term (current) use of anticoagulants; Z79.82 Long term (current) use of aspirin; Z79.899 Other long term (current) drug therapy